=== PATIENT | female | born 1960 | race Caucasian/White ===

== ENCOUNTER → 2017-05-02 | Outpatient (CLI) | payer BC ==
--- NOTE | 2017-05-02 11:58 | RAD ---
Indication: Thumb joint pain. Time of exam 11:45 AM The distal radius and ulna are intact. The carpus and metacarpals are intact. 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 No fractures are seen. Impression: Degenerative changes. No acute bony abnormality is detected.
--- NOTE | 2017-05-02 12:02 | RAD ---
Indication: Pain in the right thumb. Time of exam 11:43 AM Alignment is normal. The bony structures are intact. No fractures are seen. The soft tissues are unremarkable. There are degenerative changes at the triscaphe joint. Impression: No acute bony abnormality is detected.
== END | disposition home or self-care (01) ==
LOC: RAD 11:28
PROVIDERS: ATTEND Physician Assistant Medical
DX: M19.041 Primary osteoarthritis, right hand (principal)
CPT/HCPCS: 73110; 73140

== ENCOUNTER → 2021-04-19 | Outpatient (CLI) | payer BC ==
--- NOTE | 2021-04-20 12:07 | RAD ---
Bilateral digital screening mammogram to include digital breast tomosynthesis (3-D mammography) 04/19 CLINICAL HISTORY: Screening study. Digital MLO and CC mammograms of both breasts were obtained. Additionally digital breast tomosynthesi s images (3-D mammography) of both breasts in the CC and MLO projections were obtained. Comparison study is dated 08/17/2018. This was performed at [facility]. The breast parenchyma is composed of scattered fibroglandular densities which could obscure a lesion on mammography (breast density B). Bilateral subpectoral breast implants are again seen. Benign-appea ring and vascular calcifications are seen within both breasts. No spiculated mass is seen. No maligna nt appearing calcification or area of architectural distortion is noted. Digital breast tomosynthesis images demonstrate no spiculated mass. No malignant appearing calcificat ion is seen. Impression: BI-RADS Category 1: Negative. There is no mammographic evidence of malignancy. Routine y early screening mammography is recommended for follow-up. This examination was reviewed with the aid of computer-aided detection. A mammogram does not have 100% sensitivity and therefore a negative imaging study should not delay fu rther work up of a suspicious abnormality. Patient information is entered into the reminder system with a target due date for the next screening mammogram of 04/19/2022. "Our facility is accredited by the [employer] Mammography Program." Electronically signed by: Dylon Bullard MD (04/20/2021 12:04 PM) [id number]
== END ==
LOC: MAMMO 13:50
PROVIDERS: ATTEND Physician Assistant Medical
DX: Z12.31 Encounter for screening mammogram for malignant neoplasm of breast (principal)
CPT/HCPCS: 77063; 77067